=== PATIENT | female | born 1990 | race African-American/Black ===

== ENCOUNTER 2018-06-23 09:07 | Emergency (ER) | payer SELFPAY ==
[~2018-06-23] VITALS: Ht 177.8 cm; Wt 72.7 kg
[2018-06-23 09:09] VITALS: Ht 177.8 cm; Wt 72.7 kg
[2018-06-23 10:01] LABS: HCG URINE NEGATIVE (NEGATIVE)
[2018-06-23 10:08] LABS: APPEARANCE CLEAR (CLEAR); BILIRUBIN NEGATIVE (NEGATIVE); COLOR YELLOW (YELLOW); GLUCOSE NEGATIVE (NEGATIVE); KETONE NEGATIVE (NEGATIVE); NITRITE NEGATIVE (NEGATIVE); PROTEIN TRACE mg/dL (NEGATIVE); RED CELLS - URINE RARE /hpf (0-5); SPECIFIC GRAVITY 1.015 (1.005-1.020); UROBILINOGEN NORMAL (NORMAL); WHITE CELLS - URINE 0-5 /hpf (0-5)
[2018-06-23 10:09] LABS: EPITHELIAL CELLS OCC /hpf (0-5)
[2018-06-23 10:49] VITALS: BP 136/89
== END 2018-06-23 10:50 | disposition home or self-care (01) ==
LOC: D.ER 09:07
PROVIDERS: Family Medicine
DX: B34.9 Viral infection, unspecified (principal); K59.00 Constipation, unspecified; T14.8XXA Other injury of unspecified body region, initial encounter; X58.XXXA Exposure to other specified factors, initial encounter; Y93.89 Activity, other specified; Y92.019 Unspecified place in single-family (private) house as the place of occurrence of the external cause; R10.30 Lower abdominal pain, unspecified; J02.9 Acute pharyngitis, unspecified

== ENCOUNTER 2018-07-27 22:26 | Emergency (ER) | payer SELFPAY ==
[~2018-07-27] VITALS: Ht 177.8 cm; Wt 81.8 kg
[2018-07-27 22:56] VITALS: Ht 177.8 cm; Wt 81.8 kg
[2018-07-28] MEDS ORDERED: BUTALB-APAP-CA1 EACH PO (01:30)
[2018-07-28 02:05] VITALS: BP 126/87
== END 2018-07-28 02:05 | disposition home or self-care (01) ==
LOC: D.ER 22:26
DX: G43.909 Migraine, unspecified, not intractable, without status migrainosus (principal); H53.8 Other visual disturbances; R42 Dizziness and giddiness